=== PATIENT | male | born 1975 | race Caucasian/White ===

== ENCOUNTER 2020-03-18 09:12 | Day surgery (SDC) | payer OTHER ==
[~2020-03-18 09:12] MED LIST: DICY20TA PO; INTEGRA F CAPS1 EACH PO; INTESTINEX1 CA1 PO; Neurin-Sl Tablet Sl SL; OXYC1TAB9 PO; PYRIDOXINE HCL100 MG PO
== END 2020-03-18 14:20 | disposition home or self-care (01) ==
LOC: AMB-ENDOS 09:12
PROVIDERS: ATTEND Surgery
DX: K62.89 Other specified diseases of anus and rectum (principal); K64.8 Other hemorrhoids